=== PATIENT | male | born 1945 | race Caucasian/White ===

== ENCOUNTER 2017-10-18 04:24 | Observation (INO) | payer MEDICARE, MEDICAID ==
[2017-10-18 04:31] VITALS: BMI 29.0
--- NOTE | 2017-10-18 04:40 | ED PDOC ---
Arrival/HPI - General Chief Complaint: Dizziness/Lightheaded Time Seen by Provider: 10/18/17 04:25 Historian: Patient, Family - History of Present Illness Narrative History of Present Illness (Text): 10/18/17 04:39 Roge Yan is a 72 year old male, whose past medical history includes hypertension, who presents to the Emergency department complaining of dizziness. Patient states he did not feel well when he went to bed yesterday evening and woke up this morning with worsening dizziness. Patient states he felt near-syncopal and notes he was unable to get out of bed and walk on his own secondary to dizziness. Patient denies any fever, chills, chest pain, shortness of breath, nausea, vomiting, diarrhea, urinary symptoms, back pain, neck pain, or any other complaints. Symptom Onset: Gradual Symptom Course: Unchanged Activities at Onset: Light Context: Home Past Medical History - Provider Review Nursing Documentation Reviewed: Yes - Infectious Disease Hx of Infectious Diseases: None - Cardiac Hx Cardiac Disorders: Yes Hx Hypertension: Yes - Endocrine/Metabolic Hx Endocrine Disorders: Yes Hx Diabetes Mellitus Type 2: Yes - Psychiatric Hx Depression: No Hx Emotional Abuse: No Hx Physical Abuse: No Hx Substance Use: No - Suicidal Assessment Feels Threatened In Home Enviroment: No Family/Social History - Physician Review Nursing Documentation Reviewed: Yes Family/Social History: Unknown Family HX Smoking Status: Never Smoked Hx Alcohol Use: No Hx Substance Use: No Hx Substance Use Treatment: No Allergies/Home Meds Allergies/Adverse Reactions: Allergies No Known Allergies Allergy (Verified 06/10/15 13:58) Home Medications: Home Meds Medication Instructions Recorded Confirmed Amlodipine Besylate/Benazepr 1 cap PO DAILY 07/31/13 06/10/15 [Lotrel 10 mg-20 mg] Aspirin [Aspirin] 1 tab PO DAILY 07/31/13 06/10/15 Review of Systems - Physician Review All systems were reviewed & negative as marked: Yes - Review of Systems Constitutional: Normal. absent: Fevers Eyes: Normal ENT: Normal Respiratory: Normal. absent: SOB, Cough Cardiovascular: Other (+near-syncopal). absent: Chest Pain Gastrointestinal: Normal. absent: Abdominal Pain, Diarrhea, Nausea, Vomiting Genitourinary Male: Normal. absent: Dysuria, Frequency, Hematuria, Urinary Output Changes Musculoskeletal: Normal. absent: Back Pain, Neck Pain Skin: Normal. absent: Rash Neurological: Dizziness. absent: Headache Endocrine: Normal Hemo/Lymphatic: Normal Psychiatric: Normal Physical Exam Vital Signs Reviewed: Yes Vital Signs Temp Pulse Resp BP Pulse Ox 10/18/17 06:00 64 17 131/68 100 10/18/17 04:25 97.9 F 66 18 152/87 H 100 Temperature: Afebrile Blood Pressure: Hypertensive Pulse: Regular Respiratory Rate: Normal Appearance: Positive for: Well-Appearing, Non-Toxic, Comfortable Pain Distress: None Mental Status: Positive for: Alert and Oriented X 3 - Systems Exam Head: Present: Atraumatic, Normocephalic Pupils: Present: PERRL Extroacular Muscles: Present: EOMI Conjunctiva: Present: Normal Ears: Present: Normal, NORMAL TM, Normal Canal. No: Erythema, TM Bulging, Fluid , TM Perf Mouth: Present: Moist Mucous Membranes Pharnyx: Present: Normal. No: ERYTHEMA, EXUDATE, TONSILS ENLARGED, Peritonsilar Swelling, Uvular Deviation, Muffled/Hoarse Voice, Strider, Soft Palate/Uvular Edema Nose (External): Present: Atraumatic Nose (Internal): Present: Normal Inspection Neck: Present: Normal Range of Motion. No: Meningeal Signs, MIDLINE TENDERNESS , Paraspinal Tenderness Respiratory/Chest: Present: Clear to Auscultation, Good Air Exchange. No: Respiratory Distress, Accessory Muscle Use Cardiovascular: Present: Regular Rate and Rhythm, Normal S1, S2. No: Murmurs Abdomen: No: Tenderness, Distention, Peritoneal Signs Back: Present: Normal Inspection. No: CVA Tenderness, Midline Tenderness, Paraspinal Tenderness Upper Extremity: Present: Normal Inspection. No: Cyanosis, Edema Lower Extremity: Present: Normal Inspection. No: Edema Neurological: Present: GCS=15, CN II-XII Intact, Speech Normal, Motor Func Grossly Intact, Normal Sensory Function, Normal Cerebellar Funct Skin: Present: Warm, Dry, Normal Color. No: Rashes Psychiatric: Present: Alert, Oriented x 3, Normal Insight, Normal Concentration Medical Decision Making ED Course and Treatment: 10/18/17 04:39 Impression: 72 year old male presents for dizziness and near-syncope tonight. Plan: -- CT Head w/o contrast -- EKG -- Chest X-ray -- Labs, cardiac enzymes -- Reassess and disposition Progress Notes: Reviewed EKG, NSR at [address]-segment elevations or depressions, no T-wave inversions, normal intervals. 10/18/17 06:12 Chest X-ray reviewed, shows no acute processes. 10/18/17 06:30 Patient still with transient symptoms.Discussed with .Accepts to his service tele observation.Dr Saenz on consult.Request medical recruiter to see patient. - Lab Interpretations Lab Results: 10/18/17 04:56 10/18/17 04:56 Lab Results 10/18/17 05:21: PT 12.5, INR 1.09, APTT 29.3 10/18/17 04:56: WBC 3.4 L D, RBC 4.12, Hgb 12.9 L, Hct 37.4 L, MCV 90.8, MCH 31.3, MCHC 34.5, RDW 13.6, Plt Count 161, MPV 9.4 10/18/17 04:56: Sodium 140, Potassium 4.3, Chloride 107, Carbon Dioxide 23, Anion Gap 15, BUN 24 H, Creatinine 1.4, Est GFR ( Amer) > 60, Est GFR ( Non-Af Amer) 50, Random Glucose 158 H, Calcium 8.6, Total Bilirubin 0.5, AST 22 , ALT 27, Alkaline Phosphatase 59, Lactate Dehydrogenase 389, Total Creatine Kinase 183, Troponin I < 0.01, Total Protein 6.8, Albumin 3.7, Globulin 3.0, Albumin/Globulin Ratio 1.2 10/18/17 04:42: POC Glucose (mg/dL) 129 H I have reviewed the lab results: Yes - RAD Interpretation Radiology Orders: 10/18/17 04:47 HEAD W/O CONTRAST [CT] Stat 10/18/17 04:48 CHEST PORTABLE [RAD] Stat Rehabilitation Medicine Physician: ED Physician - EKG Interpretation Interpreted by ED Physician: Yes Type: 12 lead EKG - Medication Orders Current Medication Orders: Discontinued Medications Meclizine HCl (Antivert) 25 mg PO STAT STA Stop: 10/18/17 06:26 - Scribe Statement The provider has reviewed the documentation as recorded by the Catherine Martinez Provider Scribe Attestation: All medical record entries made by the Scribe were at my direction and personally dictated by me. I have reviewed the chart and agree that the record accurately reflects my personal performance of the history, physical exam, medical decision making, and the department course for this patient. I have also personally directed, reviewed, and agree with the discharge instructions and disposition. Disposition/Present on Arrival - Present on Arrival Any Indicators Present on Arrival: No History of DVT/PE: No History of Uncontrolled Diabetes: No Urinary Catheter: No History of Decub. Ulcer: No History Surgical Site Infection Following: None - Disposition Have Diagnosis and Disposition been Completed?: Yes Diagnosis: Near syncope, Vertigo Disposition: HOSPITALIZED Disposition Time: 06:30 Condition: STABLE Referrals: Shanti Rodriguez [Primary Care Provider] - Follow up with primary Forms: [employer] (Ukrainian)
[2017-10-18 05:11] LABS: HEMOGLOBIN 12.9 g/dL (14.0-18.0); MEAN CELL VOLUME 90.8 fl (80.0-105.0); MEAN CORPUSCULAR HEMOGLOBIN 31.3 pg (25.0-35.0); MEAN CORPUSCULAR HGB CONC 34.5 g/dl (31.0-37.0); MEAN PLATELET VOLUME 9.4 fl (7.0-11.0); RBC 4.12 10^6/uL (3.5-6.1); RED CELL DISTRIBUTION WIDTH 13.6 % (11.5-14.5)
[2017-10-18 05:18] LABS: WHITE BLOOD COUNT 3.4 10^3/ul (4.5-11.0)
[2017-10-18 05:21] LABS: ALB/GLOB RATIO 1.2 (1.1-1.8); ALBUMIN 3.7 g/dL (3.0-4.8); ALT/SGPT 27 U/L (7-56); AST/SGOT 22 U/L (17-59); BLOOD UREA NITROGEN 24 mg/dL (7-21); CALCIUM 8.6 mg/dL (8.4-10.5); GFR NON-AFRICAN AMERICAN 50
[2017-10-18 05:32] LABS: TROPONIN I < 0.01 ng/mL
[2017-10-18 05:45] LABS: INR 1.09; PARTIAL THROMBOPLASTIN TIME 29.3 Seconds (25.1-36.5); PROTHROMBIN TIME 12.5 SECONDS (9.4-12.5)
--- NOTE | 2017-10-18 07:37 | CT ---
Date of service: 10/18/2017 PROCEDURE: CT HEAD WITHOUT CONTRAST. HISTORY: near syncope COMPARISON: None available. TECHNIQUE: Axial computed tomography images were obtained through the head/brain without intravenous contrast. Radiation dose: Total exam DLP = mGy-cm. This CT exam was performed using one or more of the following dose reduction techniques: Automated exposure control, adjustment of the mA and/or kV according to patient size, and/or use of iterative reconstruction technique. FINDINGS: HEMORRHAGE: No intracranial hemorrhage. BRAIN: No mass effect or edema. No atrophy or chronic microvascular ischemic changes. VENTRICLES: Unremarkable. No hydrocephalus. CALVARIUM: Unremarkable. PARANASAL SINUSES: Unremarkable as visualized. No significant inflammatory changes. MASTOID AIR CELLS: Unremarkable as visualized. No inflammatory changes. OTHER FINDINGS: None. IMPRESSION: Normal CT of the Head.
[2017-10-18 08:50] LABS: ALB/GLOB RATIO 1.3 (1.1-1.8); ALBUMIN 4.2 g/dL (3.0-4.8); BILIRUBIN,DIRECT 0.2 mg/dL (0.0-0.4)
[2017-10-18 10:07] LABS: FREE T4 0.89 ng/dL (0.78-2.19); T4 6.5 ug/dL (5.5-11.0)
--- NOTE | 2017-10-18 10:07 | RAD ---
Date of service: 10/18/2017 HISTORY: near syncope COMPARISON: No prior. FINDINGS: LUNGS: No active pulmonary disease. PLEURA: No significant pleural effusion identified, no pneumothorax apparent. CARDIOVASCULAR: Normal. OSSEOUS STRUCTURES: No significant abnormalities. VISUALIZED UPPER ABDOMEN: Normal. OTHER FINDINGS: None. IMPRESSION: No active disease.
[2017-10-18 10:17] LABS: BARBITURATES, UR NEGATIVE (NEGATIVE); BENZODIAZEPINES, UR NEGATIVE (NEGATIVE); OPIATES, UR NEGATIVE (NEGATIVE); PHENCYCLIDINE, UR NEGATIVE (NEGATIVE)
[2017-10-18] MEDS: Enoxaparin 40 mg Syringe SC SCH (10:29)
[2017-10-18 10:35] LABS: URINE APPEARANCE CLEAR (CLEAR); URINE BILIRUBIN NEGATIVE (NEGATIVE); URINE BLOOD NEGATIVE (NEGATIVE); URINE COLOR YELLOW (YELLOW); URINE GLUCOSE (UA) NEGATIVE (NEGATIVE); URINE LEUKOCYTE ESTERASE NEGATIVE Leu/uL (NEGATIVE); URINE PROTEIN NEGATIVE mg/dL (<30 mg/dL); URINE UROBILINOGEN 0.2 E.U./dL (<1 E.U./dL)
[2017-10-18 11:12] LABS: TROPONIN I < 0.01 ng/mL
[2017-10-18] MEDS: Aspirin 325 mg EC Tablets PO SCH (11:43)
--- NOTE | 2017-10-18 12:41 | HP ---
Copied To: Krishna Tomas MD Attending MD: Krishna Tomas MD HISTORY OF PRESENT ILLNESS: The patient is a 72-year-old male who presented to the [facility] Emergency Room as a walk-in. The patient came to the Emergency Room according to the patient's daughter who provided all the history complaining of dizziness and almost passing out, which started in around 1 o'clock this morning. The patient's daughter stated that he went to bed fine and then we woke up to go to the bathroom, the patient was extremely dizzy and was unable to walk and almost felt like passing out. The patient's daughter stated that yesterday the patient was working in the yard and he was in normal state of health until yesterday. According to the ER physician evaluation, the patient felt very dizzy early this morning and had a near-syncopal episode while going to the bathroom. CODE STATUS: Full code. LIVING WILL ADVANCE DIRECTIVE: None. ALLERGIES: NONE. HEIGHT: 5 feet 6 inches. WEIGHT: 180. BMI: 29. HOME MEDICATIONS: Aspirin 81 mg and Norvasc 10 mg. OCCUPATIONAL HISTORY: Not employed. FAMILY HISTORY: Not available. SOCIAL HISTORY: Former smoker. Denies alcohol. Denies drug use. Denies communicable transmissible disease. Denies hypersexual behavior. PAST MEDICAL AND SURGICAL HISTORY: History of hypertension, history of leukopenia, history of obesity, history of elevated body mass index, history of vertigo, history of involutional changes of the brain, history of bradycardia. The patient's past medical history is also significant for history of dizziness. The patient is seen in room 271 bed 1. The patient is lying in the bed. PHYSICAL EXAMINATION: VITAL SIGNS: T-max is 98, heart rate 63 and 66. Telemetry shows sinus rhythm, sinus bradycardia. Blood pressure 152/87, 131/68, 138/65,144/83; respirations 18;, O2 sat 98-99%. HEENT: The patient's head examination is normocephalic, atraumatic. HEENT examination shows pink conjunctivae. Anicteric sclerae. No oropharyngeal lesion. NECK: No neck rigidity. Questionable soft carotid bruit. CHEST: Kyphosis. LUNGS: Examination shows no rales, crackles or wheezing. CARDIOVASCULAR: S1, S2, regular rhythm. Questionable soft systolic murmur, left sternal border, right second intercostal space, left second intercostal space. ABDOMEN: Soft, protuberant. No hepatosplenomegaly noted. No guarding. No rigidity. No rebound tenderness. GENITALIA: Male. RECTAL: Deferred. EXTREMITIES: Shows no pitting edema, no calf tenderness, no Homans' signs. Romberg sign is questionable, equivocal. Motor strength is 5/5. Gait examination is not tested. VASCULAR: Palpable pulses. Cranial nerves II-XII limited. DIAGNOSTICS: CBC: WBC 3.4, hemoglobin and hematocrit 12.9 and 37.4. ESR is elevated at 20. PT/PTT is normal. Chemistry shows BUN of 24, creatinine 1.4, glucose 129 and 158. LFTs: Magnesium and troponin first set negative. Cholesterol 171, LDL 57, HDL 64. TSH 1.94, T4 6.5. Urine pH 6, specific gravity less than 1.005. Urine drug screen was negative for all tested drugs. The patient had CT of the head and a chest x-ray done, the results of which were reviewed. EKG was done and reviewed. The patient was seen and evaluated in the Emergency Room by the ER physician, Dr. Phillips. The patient was evaluated in the Emergency Room. The patient was advised to be admitted to Telemetry due to the patient's symptoms. The patient was treated in the Emergency room with a dose of Antivert and meclizine 25. IMPRESSION AND PLAN: 1. Near syncope, etiology undetermined. 2. Severe symptomatic dizziness and near syncope. 3. Questionable vertigo. 4. Hypertension. 5. Bradycardia. 6. Leukopenia and anemia. 7. Mildly elevated erythrocyte sedimentation rate. 8. Hyperglycemia. 9. Prerenal kidney injury. 10. Obesity with elevated body mass index. 11. History of sinus bradycardia. 12. Questionable history of diabetes mellitus. PLAN: At this time, the patient has been placed on Telemetry Observation. The patient has been ordered serial labs. Repeat troponin, repeat CPK, repeat LFT, magnesium and phosphorus has been ordered. HIV, Lyme disease ordered. Consultation with Neurology, Cardiology requested. RPR ordered. CURRENT MEDICATIONS: The patient is started on Antivert 25 mg. The patient is started on aspirin. Ecotrin 325 mg daily has been ordered. The patient has been ordered Lipitor 40 mg daily, Lovenox 40 mg subcu daily for DVT prophylaxis, Protonix 40 daily for GI prophylaxis, Zofran 4 IV every 4 hours has been ordered p.r.n. Carotid Doppler, MRI and MRA of the brain; repeat EKG EEG, echo with Doppler all ordered. The patient is on heart-healthy diet. The patient has been ordered out of bed, ROBERTA stockings, SCDs, occupational and physical therapy ordered. At present, the patient's present management and treatment plan, need for further diagnostic therapeutic intervention, need for further evaluation by Cardiology, Neurology and other subspecialty was discussed and explained to the patient's daughter. The eldest daughter was present at the bedside. All details discussed at length with the patient and the patient's daughter at length and all questions concerned answered to their satisfaction. At present, the patient's further management will be dependent upon the patient's clinical condition, hemodynamic status and as per the patient response to therapeutic intervention, as per the patient's diagnostic test results and as per recommendation by all the physicians involved in the care of the patient. Dictated and electronically signed, not read. Krishna Tomas MD
[2017-10-18] MEDS ORDERED: Pneumococcal 23-Valent Vaccine IM ONE (13:17)
[2017-10-18 17:21] LABS: TROPONIN I < 0.01 ng/mL
[2017-10-18] MEDS ORDERED: Gadodiamide 287 MG/ML VIAL (15ML) IV ONE (17:33)
--- NOTE | 2017-10-18 17:36 | US ---
PROCEDURE: Bilateral carotid artery duplex ultrasound HISTORY: Carotid stenosis syncope PHYSICIAN(S): Neftali Welch MD. TECHNIQUE: Duplex sonography and color-flow Doppler were used to evaluate the carotid bifurcations and limited segments of the vertebral arteries bilaterally. FINDINGS: There is mild smooth heterogeneous plaque noted at the carotid bifurcations bilaterally. The peak systolic velocity in the proximal right internal carotid artery is 92 cm/sec. This corresponds to a 20 to 39% proximal right ICA stenosis. Normal systolic velocities are noted in the proximal right external carotid artery. There is antegrade flow in the right vertebral artery. The peak systolic velocity in the proximal left internal carotid artery is 99 cm/sec. This corresponds to a 20 to 39% proximal left ICA stenosis. Normal systolic velocities are noted in the proximal left external carotid artery. There is antegrade flow in the dominant left vertebral artery. IMPRESSION: 1. Bilateral 20-39% proximal ICA stenoses. 2. Antegrade flow in both vertebral arteries.
--- NOTE | 2017-10-18 19:09 | MRI ---
Date of service: 10/18/2017 PROCEDURE: MRI BRAIN WITH AND WITHOUT CONTRAST HISTORY: Near syncope COMPARISON: Comparison made with prior CT scan brain 10/18/2017 TECHNIQUE: Multiplanar, multisequence MR images of the brain were obtained with and without intravenous contrast enhancement. 15 cc of gadolinium contrast material injected for this procedure FINDINGS: HEMORRHAGE: No acute parenchymal, subarachnoid or extra-axial hemorrhage. No evidence of hemosiderin deposition identified on gradient echo weighted sequence DWI: No evidence of an acute or early subacute infarction seen on diffusion imaging. . BRAIN PARENCHYMA: There appears to be some minimal chronic appearing perifrontal horn white matter ischemic changes. Moderate generalized volume loss. ENHANCEMENT: No enhancing parenchymal nor extra-axial masses or collections. . . No evidence of abnormal meningeal enhancement VENTRICLES: No obstructive hydrocephalus. CRANIUM: Unremarkable. ORBITS: Orbits and contents grossly unremarkable. PARANASAL SINUSES/MASTOIDS: Clear VASCULAR SYSTEM: Visualized major vascular flow voids at skull base. OTHER FINDINGS: None . IMPRESSION: No acute intracranial hemorrhage or infarct. No enhancing masses collections. Minimal perifrontal horn white matter ischemic changes. . Moderate generalized volume loss. No enhancing lesions.
--- NOTE | 2017-10-18 21:07 | CON ---
Copied To: Nehemiah Saenz MD Attending MD: Nehemiah Saenz MD DATE: 10/18/2017 HISTORY OF PRESENT ILLNESS: This is a 72-year-old male with a past medical history of hypertension, bradycardia, dizziness. He is my office patient and came to see because he was feeling dizzy after having meal at home, spoke to the daughter that he is feeling dizzy and she brought him to the hospital. PAST MEDICAL HISTORY: As above. SOCIAL HISTORY: Ex-smoker. Does not drink. ALLERGIES: NO KNOWN DRUG ALLERGY. HOME MEDICATIONS: Norvasc and aspirin. PHYSICAL EXAMINATION: HEENT: Normocephalic, atraumatic. NECK: Supple. NEUROLOGIC: Alert, awake, oriented x3. No aphasia. Cranial nerves II through XII were tested. Pupils reactive. EOM intact. Visual brown full. No facial asymmetry. Tongue midline. Motor examination: Moves all the extremities equally. Tone normal. Deep tendon reflexes are 1+. Both plantars are downgoing. Sensory appears intact. Cerebellar, gait, normal. IMPRESSION: Dizziness, could be benign positional and no intracranial pathology. MRI, CAT scan of head was negative and continue present management and we will follow up. Nehemiah Saenz MD
[2017-10-19 05:03] VITALS: RESP 20; O2SAT 98
[2017-10-19] MEDS ORDERED: Pantoprazole 40 mg EC Tab PO SCH (06:00)
[2017-10-19 06:58] LABS: BASO # 0.01 K/mm3 (0.0-2.0); BASO % 0.3 % (0.0-3.0); EOS # 0.2 (0.0-0.7); EOS % 4.2 % (1.5-5.0); GRAN # 1.7 (1.4-6.5); GRAN % 44.2 % (50.0-68.0); HEMOGLOBIN 12.9 g/dL (14.0-18.0); LYMPH # 1.6 (1.2-3.4); LYMPH % 41.7 % (22.0-35.0); MEAN CELL VOLUME 91.4 fl (80.0-105.0); MEAN CORPUSCULAR HEMOGLOBIN 30.8 pg (25.0-35.0); MEAN CORPUSCULAR HGB CONC 33.7 g/dl (31.0-37.0); MEAN PLATELET VOLUME 9.6 fl (7.0-11.0); MONO # 0.4 (0.1-0.6); MONO % 9.6 % (1.0-6.0); RBC 4.19 10^6/uL (3.5-6.1); RED CELL DISTRIBUTION WIDTH 13.7 % (11.5-14.5); WHITE BLOOD COUNT 3.8 10^3/ul (4.5-11.0)
[2017-10-19 07:03] LABS: ALB/GLOB RATIO 1.2 (1.1-1.8); ALBUMIN 3.4 g/dL (3.0-4.8); ALT/SGPT 25 U/L (7-56); AST/SGOT 22 U/L (17-59); BILIRUBIN,DIRECT 0.1 mg/dL (0.0-0.4); BLOOD UREA NITROGEN 17 mg/dL (7-21); CALCIUM 8.9 mg/dL (8.4-10.5); GFR NON-AFRICAN AMERICAN 60
[2017-10-19 07:09] VITALS: BP 126/68; PULSE 52; TEMP 98.3
--- NOTE | 2017-10-19 07:35 | CARD ---
APPROVED REPORT Date of service: 10/18/2017 EKG Measurement Heart [id number] <Conclusion> Normal sinus rhythm Normal ECG
--- NOTE | 2017-10-19 07:55 | CARD ---
APPROVED REPORT Date of service: 10/18/2017 EXAM: Two-dimensional and M-mode echocardiogram with Doppler and color Doppler. Other Information Quality : GoodRhythm : INDICATION NEAR SYNCOPE 2D DIMENSIONS RVDd3.0 (2.9-3.5cm)Left Atrium (2D)3.7 (1.6-4.0cm) IVSd1.1 (0.7-1.1cm)LVDd4.6 (3.9-5.9cm) PWd1.0 (0.7-1.1cm)LVDs2.7 (2.5-4.0cm) FS (%) 40.6 %LVEF (%)71.0 (>50%) M-Mode DIMENSIONS Aortic Root4.30 (2.2-3.7cm)Aortic Cusp Exc.1.80 (1.5-2.0cm) Aortic Valve AoV Peak Qlmcadvs325.0cm/s Mitral Valve MV E Kdgzxoan96.6cm/sMV A Bllfcxzz67.3cm/sE/A ratio0.7 TDI Lateral E' Peak V9.91cm/sMedial E' Peak V8.19cm/sE/Lateral E'6.8 E/Medial E'8.3 Pulmonary Valve PV Peak Rfvgrges37.3cm/sPV Peak Grad.4mmHg Tricuspid Valve TR Peak Wmmpmwum215zc/sRAP [id number] Peak Gr.25mmHg [id number] LEFT VENTRICLE The left ventricle is normal size. There is normal left ventricular wall thickness. The left ventricular function is normal. The left ventricular ejection fraction is within the normal range. There is normal LV segmental wall motion. RIGHT VENTRICLE The right ventricle is normal size. ATRIA The left atrium size is normal. The right atrium size is normal. The atrial septum is aneurysmal. AORTIC VALVE The aortic valve is normal in structure. There is trace aortic regurgitation. MITRAL VALVE The mitral valve is normal in structure. Mitral regurgitation is mild. TRICUSPID VALVE The tricuspid valve is normal in structure. There is trace tricuspid regurgitation. PULMONIC VALVE The pulmonary valve is normal in structure. There is trace pulmonic valvular regurgitation. GREAT VESSELS The aortic root is normal in size. PERICARDIAL EFFUSION There is no pericardial effusion. <Conclusion> The left ventricle is normal size. There is normal left ventricular wall thickness. The left ventricular function is normal.
--- NOTE | 2017-10-19 08:54 | MRI ---
Date of service: 10/18/2017 PROCEDURE: Magnetic Resonance Angiography Brain HISTORY: NEAR SYNCOPE COMPARISON: None available. TECHNIQUE: 3D time of flight MR angiography of the intracranial arteries was performed. Rotating maximum intensity projection images were generated. FINDINGS: INTERNAL CAROTID ARTERIES: Unremarkable. The skull base, petrous, cavernous and supraclinoid segments are bilaterally widely patient. ANTERIOR CEREBRAL ARTERIES: Unremarkable. A1 and A2 segments are widely patent. Smaller distal branches unremarkable, as visualized. MIDDLE CEREBRAL ARTERIES: Unremarkable. M1 and M2 segments are widely patent. Perisylvian branches grossly symmetric. POSTERIOR CIRCULATION: Basilar Artery: Unremarkable. Distal Vertebral Arteries: Unremarkable. Posterior Cerebral Arteries: Unremarkable. Posterior Inferior Cerebellar Arteries: Unremarkable. ANEURYSM/ VASCULAR MALFORMATIONS: None. OTHER FINDINGS: None. IMPRESSION: Unremarkable MR angiography of the brain. No evidence of significant stenosis or definite occlusion. No aneurysm formation or arteriovascular malformation. Concordant preliminary report from [facility], 10/18/2017.
--- NOTE | 2017-10-19 09:01 | CARD ---
APPROVED REPORT Date of service: 10/19/2017 EKG Measurement Heart [id number] <Conclusion> Marked sinus bradycardia, new PRWP
[2017-10-19] MEDS: Enoxaparin 40 mg Syringe SC SCH (09:36)
[2017-10-19] MEDS: Aspirin 325 mg EC Tablets PO SCH (09:37)
--- NOTE | 2017-10-19 09:42 | CP.PCM.PN ---
Subjective - Date & Time of Evaluation Date of Evaluation: 10/19/17 Time of Evaluation: 09:41 - Subjective Subjective: Gilbert Le PGY2 IM Progress Note for Dr. Tomas Patient was seen and examined at bedside. Overnight, patient did have an episode of bradycardia. He denies current dizziness or gait instability. He states that he was able to ambulate last night without any problems, and has not had any problems with changes in vision, hearing, ringing in the ears, chest pain, shortness of breath or any numbness/tingling or focal weakness. Patient was seen by neurology, Dr. Saenz, who knows the patient on an outpatient basis, and he recommended to continue management and will be following up. Objective - Vital Signs/Intake and Output Vital Signs (last 24 hours): Temp Pulse Resp BP Pulse Ox 98.3 F 52 L 20 126/68 98 10/19/17 06:00 10/19/17 06:00 10/19/17 06:00 10/19/17 06:00 10/19/17 06:00 Intake and Output: 10/19/17 10/19/17 06:59 18:59 Intake Total 240 Balance 240 - Medications Medications: Current Medications Acetaminophen (Tylenol 325mg Tab) 650 mg PO Q6 PRN PRN Reason: TEMP>=99.5F Acetaminophen (Tylenol 650 Mg Supp) 650 mg RC Q6H PRN PRN Reason: TEMP>=99.5F Aspirin (Ecotrin) 325 mg PO DAILY [facility] Last Admin: 10/19/17 09:37 Dose: 325 mg Atorvastatin Calcium (Lipitor) 40 mg PO DIN [facility] Last Admin: 10/18/17 17:07 Dose: 40 mg Enoxaparin Sodium (Lovenox) 40 mg SC DAILY [facility] PRN Reason: Protocol Last Admin: 10/19/17 09:36 Dose: 40 mg Meclizine HCl (Antivert) 25 mg PO Q8H [facility] Last Admin: 10/19/17 09:37 Dose: 25 mg Ondansetron HCl (Zofran Inj) 4 mg IVP Q4H PRN PRN Reason: Nausea/Vomiting Pantoprazole Sodium (Protonix Ec Tab) 40 mg PO 0600 [facility] Last Admin: 10/19/17 06:38 Dose: 40 mg - Labs Labs: 10/19/17 06:30 10/19/17 06:30 PT 12.5 SECONDS (9.4-12.5) 10/18/17 05:21 INR 1.09 10/18/17 05:21 APTT 29.3 Seconds (25.1-36.5) 10/18/17 05:21 - Constitutional Appears: Well, Non-toxic, No Acute Distress - Head Exam Head Exam: NORMAL INSPECTION - Eye Exam Eye Exam: EOMI, Normal appearance, PERRL - ENT Exam ENT Exam: Mucous Membranes Moist - Neck Exam Neck Exam: Normal Inspection - Respiratory Exam Respiratory Exam: Clear to Ausculation Bilateral, NORMAL BREATHING PATTERN. absent: Rales, Rhonchi, Wheezes, Respiratory Distress - Cardiovascular Exam Cardiovascular Exam: RRR, +S1, +S2 - GI/Abdominal Exam GI & Abdominal Exam: Soft, Normal Bowel Sounds. absent: Distended, Tenderness - Extremities Exam Extremities Exam: Full ROM - Back Exam Back Exam: NORMAL INSPECTION - Neurological Exam Neurological Exam: Alert, Awake, Oriented x3 Neuro motor strength exam: Left Upper Extremity: 5, Right Upper Extremity: 5, Left Lower Extremity: 5, Right Lower Extremity: 5 Additional comments: no dysmetria normal [id number] b/l and [id number] b/l - Psychiatric Exam Psychiatric exam: Normal Mood - Skin Skin Exam: Warm Assessment and Plan - Assessment and Plan (Free Text) Assessment: 72-year-old male with a PMH of HTN, bradycardia and dizziness who presented to the ED for episode of dizziness and gait instability. Cardiology and neurology were consulted. Neurology recommends follow-up with patient as dizziness could be benign positional with no intracranial pathology. MRI brain , MRA head, echocardiogram and carotid venous duplex were all unremarkable. Cardiology cleared patient for discharge. This morning, patient's symptoms have resolved and he is neurologically stable. Plan: 1. Dizziness, likely BPPV - improved with Meclizine - continue Meclizine 25 q8 - zofran prn - cont ASA/Lipitor - PT recommending home 2. Bradycardia - stopped Norvasc 3. PPX - PTX for GI ppx - Lovenox for DVT ppx Case was reviewed and discussed with attending, Dr. Thom Le PGY2
--- NOTE | 2017-10-19 11:48 | CON ---
Copied To: Neftali Angeles MD Attending MD: Neftali Angeles MD DATE: 10/19/2017 CARDIOLOGY CONSULTATION HISTORY: The patient is a 72-year-old male, who presents with transient dizziness. His symptoms as described is consistent with vertigo. The patient's past medical history includes hypertension, in which he is on multiple medications. There is no previous cardiac history. He does suffer from hypercholesterolemia as well. SOCIAL HISTORY: The patient is a former smoker, stopped many years ago. No previous cardiac history is noted. REVIEW OF SYSTEMS: Fourteen-point review of systems is reviewed in detail. His dizziness is now resolved. There is no cardiac symptomatology noted. PHYSICAL EXAMINATION: VITAL SIGNS: Blood pressure is 126/68. There are no orthostatic changes. Heart rate is in the 50s. Normal sinus rhythm. NECK: Negative JVD. LUNGS: Without rales. HEART: Reveals S1, S2. EXTREMITIES: Without edema. EKG shows sinus bradycardia with no acute changes. LABORATORY DATA: Troponins are negative x2. Hemoglobin is 12.9. IMPRESSION: 1. Dizziness, which is likely due to vertigo. 2. No evidence for cardiac pathology. 3. History of hypertension. 4. History of hypercholesterolemia. 5. No acute coronary syndrome noted. PLAN: Given these findings, the patient's cardiac status is stable. His dizziness is resolved. We will discontinue telemetry today. Neftali Angeles MD
--- NOTE | 2017-10-19 20:51 | CP.PCM.DIS ---
Provider - Provider Date of Admission: 10/18/17 06:32 Attending physician: Krishna Tomas MD Primary care physician: Shanti Rodriguez Time Spent in preparation of Discharge (in minutes): 35 Diagnosis - Discharge Diagnosis (1) Vertigo Status: Chronic Hospital Course - Lab Results Lab Results: Most Recent Lab Values WBC 3.8 10^3/ul (4.5-11.0) L 10/19/17 06:30 RBC 4.19 10^6/uL (3.5-6.1) 10/19/17 06:30 Hgb 12.9 g/dL (14.0-18.0) L 10/19/17 06:30 Hct 38.3 % (42.0-52.0) L 10/19/17 06:30 MCV 91.4 fl (80.0-105.0) 10/19/17 06:30 MCH 30.8 pg (25.0-35.0) 10/19/17 06:30 MCHC 33.7 g/dl (31.0-37.0) 10/19/17 06:30 RDW 13.7 % (11.5-14.5) 10/19/17 06:30 Plt Count 177 10^3/uL (120.0-450.0) 10/19/17 06:30 MPV 9.6 fl (7.0-11.0) 10/19/17 06:30 Gran % 44.2 % (50.0-68.0) L 10/19/17 06:30 Lymph % (Auto) 41.7 % (22.0-35.0) H 10/19/17 06:30 [place] % (Auto) 9.6 % (1.0-6.0) H 10/19/17 06:30 Eos % (Auto) 4.2 % (1.5-5.0) 10/19/17 06:30 Baso % (Auto) 0.3 % (0.0-3.0) 10/19/17 06:30 Gran # 1.70 (1.4-6.5) 10/19/17 06:30 Lymph # (Auto) 1.6 (1.2-3.4) 10/19/17 06:30 [place] # (Auto) 0.4 (0.1-0.6) 10/19/17 06:30 Eos # (Auto) 0.2 (0.0-0.7) 10/19/17 06:30 Baso # (Auto) 0.01 K/mm3 (0.0-2.0) 10/19/17 06:30 ESR 20 mm/hr (0.00-15.0) H 10/18/17 05:00 PT 12.5 SECONDS (9.4-12.5) 10/18/17 05:21 INR 1.09 10/18/17 05:21 APTT 29.3 Seconds (25.1-36.5) 10/18/17 05:21 Sodium 141 mmol/L (132-148) 10/19/17 06:30 Potassium 4.6 mmol/L (3.6-5.0) 10/19/17 06:30 Chloride 108 mmol/L (98-107) H 10/19/17 06:30 Carbon Dioxide 25 mmol/L (21-33) 10/19/17 06:30 Anion Gap 12 (10-20) 10/19/17 06:30 BUN 17 mg/dL (7-21) 10/19/17 06:30 Creatinine 1.2 mg/dl (0.8-1.5) 10/19/17 06:30 Est GFR ( Amer) > 60 10/19/17 06:30 Est GFR (Non-Af Amer) 60 10/19/17 06:30 POC Glucose (mg/dL) 94 mg/dL (65-110) 10/19/17 07:18 Random Glucose 100 mg/dL (70-110) 10/19/17 06:30 Hemoglobin A1c 6.4 % (4.2-6.5) 10/18/17 08:15 Calcium 8.9 mg/dL (8.4-10.5) 10/19/17 06:30 Phosphorus 3.0 mg/dL (2.5-4.5) 10/19/17 06:30 Magnesium 2.2 mg/dL (1.7-2.2) 10/19/17 06:30 Total Bilirubin 0.8 mg/dL (0.2-1.3) 10/19/17 06:30 Direct Bilirubin 0.1 mg/dL (0.0-0.4) 10/19/17 06:30 AST 22 U/L (17-59) 10/19/17 06:30 ALT 25 U/L (7-56) 10/19/17 06:30 Alkaline Phosphatase 50 U/L (38-126) 10/19/17 06:30 Lactate Dehydrogenase 389 U/L (333-699) 10/18/17 04:56 Total Creatine Kinase 161 U/L (35-230) 10/18/17 16:50 Troponin I < 0.01 ng/mL 10/18/17 16:50 C-React Prot High Sens 4.27 mg/L (1.00-3.00) H 10/18/17 08:30 Total Protein 6.2 g/dL (5.8-8.3) 10/19/17 06:30 Albumin 3.4 g/dL (3.0-4.8) 10/19/17 06:30 Globulin 2.8 gm/dL 10/19/17 06:30 Albumin/Globulin Ratio 1.2 (1.1-1.8) 10/19/17 06:30 Triglycerides 132 mg/dL (35-160) 10/18/17 08:15 Cholesterol 171 mg/dL (130-200) 10/18/17 08:15 LDL Cholesterol Direct 57 mg/dL (0-129) 10/18/17 08:15 HDL Cholesterol 64 mg/dL (29-60) H 10/18/17 08:15 Vitamin B12 465 pg/mL (239-931) 10/18/17 08:15 Folate 17.0 ng/mL 10/18/17 08:15 Free T4 0.89 ng/dL (0.78-2.19) 10/18/17 08:30 Thyroxine (T4) 6.5 ug/dL (5.5-11.0) 10/18/17 08:30 TSH 3rd Generation 1.94 mIU/mL (0.46-4.68) 10/18/17 08:30 Urine Color Yellow (YELLOW) 10/18/17 09:45 Urine Appearance Clear (CLEAR) 10/18/17 09:45 Urine pH 6.0 (4.7-8.0) 10/18/17 09:45 Ur Specific [place] <= 1.005 (1.005-1.035) 10/18/17 09:45 Urine Protein Negative mg/dL (<30 mg/dL) 10/18/17 09:45 Urine Glucose (UA) Negative mg/dL (NEGATIVE) 10/18/17 09:45 Urine Ketones Negative mg/dL (NEGATIVE) 10/18/17 09:45 Urine Blood Negative (NEGATIVE) 10/18/17 09:45 Urine Nitrate Negative (NEGATIVE) 10/18/17 09:45 Urine Bilirubin Negative (NEGATIVE) 10/18/17 09:45 Urine Urobilinogen 0.2 E.U./dL (<1 E.U./dL) 10/18/17 09:45 Ur Leukocyte Esterase Negative Rosanna/uL (NEGATIVE) 10/18/17 09:45 Urine Opiates Screen Negative (NEGATIVE) 10/18/17 09:45 Urine Methadone Screen Negative (NEGATIVE) 10/18/17 09:45 Ur Barbiturates Screen Negative (NEGATIVE) 10/18/17 09:45 Ur Phencyclidine Scrn Negative (NEGATIVE) 10/18/17 09:45 Ur Amphetamines Screen Negative (NEGATIVE) 10/18/17 09:45 U Benzodiazepines Scrn Negative (NEGATIVE) 10/18/17 09:45 U Oth Cocaine Metabols Negative (NEGATIVE) 10/18/17 09:45 U Cannabinoids Screen Negative (NEGATIVE) 10/18/17 09:45 RPR Nonreactive (NONREACTIVE) 10/18/17 08:30 Lyme Disease Screen <0.90 index 10/18/17 08:15 HIV 1&2 Ag/Ab, 4th Gen Nonreactive (Nonreactive) 10/18/17 08:15 - Hospital Course Hospital Course: Mr. Yan is a 72-year-old male with a PMH of vertigo, hypertension, hyperlipidemia and bradycardia who presented to the ED and was admitted for workup of an episode of dizziness that he had. The patient had denied any related focal deficits or sensory changes, or any changes in vision or hearing. Imaging including head CT, brain MRI, head MRA, carotid ultrasound and echocardiogram were all unremarkable. Neurology and cardiology were consulted. Patient's symptoms improved on meclizine while in the hospital. His vital signs and labs were unremarkable. PT evaluated the patient and recommended that the patient can be safely discharged On morning of discharged, his symptoms had resolved and the patient denied any dizziness, changes in vision/hearing, fever/chills, nausea/vomiting/diarrhea, chest pain, shortness of breath, abdominal pain or any motor/sensory deficits. He was educated regarding his condition. The patient experienced an episode of marked bradycardia, and his Norvasc was stopped. The patient is to continue aspirin, meclizine, Lipitor and losartan. He is to follow-up with Dr. Tomas in clinic within 2 weeks, Dr. Saenz (neurology) within 2 weeks. He states that he also has an appointment with his quartz mounter in 3 months. The patient is medically optimized for discharge. Discharge Exam - Head Exam Head Exam: NORMAL INSPECTION - Eye Exam Eye Exam: EOMI, Normal appearance, PERRL. absent: Nystagmus - Neck Exam Neck exam: Full Rom, Normal Inspection - Respiratory Exam Respiratory Exam: Clear to PA & Lateral, NORMAL BREATHING PATTERN. absent: Rales, Rhonchi, Wheezes, Respiratory Distress - Cardiovascular Exam Cardiovascular Exam: RRR, +S1, +S2 - GI/Abdominal Exam GI & Abdominal Exam: Normal Bowel Sounds, Soft. absent: Distended, Tenderness - Extremities Exam Extremities exam: full ROM - Back Exam Back exam: NORMAL INSPECTION - Neurological Exam Neurological exam: Alert, CN II-XII Intact, Normal Gait, Oriented x3 - Psychiatric Exam Psychiatric exam: Normal Mood - Skin Skin Exam: Warm Discharge Plan - Discharge Medications Prescriptions: Atorvastatin [Lipitor] 40 mg PO DIN #30 tab Meclizine [Meclizine*] 25 mg PO Q8H #30 tab - Follow Up Plan Condition: STABLE Disposition: HOME/ ROUTINE Instructions: Vertigo (a Type of Dizziness), Vertigo (a Type of Dizziness) (DC) , Vestibular Exercises Additional Instructions: - please follow up with Dr. Tomas in clinic within 1 week - please take the meclizine as prescribed 3 times daily - if you continue to experience dizziness, worsening of gait or any other neurological symptoms, please return to closest ER for evaluation STOP NORVASC/AMLODOPINE DISCHARGE MEDS PER UPDATED AMBULATORY ORDERS PLUS NEW SCRIPTS Referrals: Krishna Tomas MD [Staff Provider] - 1 Week (- please follow up with Dr. Tomas in clinic within 1 week - please take the meclizine as prescribed 3 times daily - if you continue to experience dizziness, worsening of gait or any other neurological symptoms, please return to closest ER for evaluation STOP NORVASC/AMLODOPINE DISCHARGE MEDS PER UPDATED AMBULATORY ORDERS PLUS NEW SCRIPTS)
--- NOTE | 2017-10-20 06:30 | DS ---
Copied To: Krishna Tomas MD Attending MD: Krishna Tomas MD FINAL PROGRESS NOTE AND DISCHARGE SUMMARY HISTORY OF PRESENT ILLNESS: The patient is seen in room 271, bed 2. Overnight nurse's notes were reviewed. Telemetry monitoring was reviewed. Vital signs, diagnostic data was reviewed. The patient was examined in room 271, bed 2. The patient denies any dizziness. Denies any syncope. Denies any near syncope. PHYSICAL EXAMINATION: VITAL SIGNS: Telemetry shows sinus bradycardia. Overnight telemetry strips were reviewed. The patient's heart rate decreased to high 40s and low 50s. Blood pressure 126/68, 125/70; respiration 20; O2 sat 98%. HEENT: Head: Normocephalic, atraumatic. Mitchell conjunctivae. Anicteric sclerae. No oropharyngeal lesion. No neck rigidity. CHEST: Symmetrical. LUNGS: Shows no rales, crackles or wheezing. CARDIOVASCULAR: S1, S2, regular rhythm. No audible murmur, gallop or rub. ABDOMEN: Soft. Positive bowel sound. GENITALIA: Male. RECTAL: Examination is deferred. EXTREMITIES: Shows no pitting edema, no calf tenderness, no Homans' sign. NEUROLOGIC: The patient is alert, awake, oriented x3. The patient is able to move upper and lower extremities without assistance. Motor strength is 5/5 in upper and lower extremities. The patient's Romberg sign is negative. DIAGNOSTICS: WBC 3.8, hemoglobin/hematocrit 12.9/38.3, platelets 177, granulocytes 44, lymphocytes 42. Sodium 141, potassium 4.6, chloride 108, CO2 of 25, anion gap 12, BUN 17, creatinine 1.2, GFR greater than 60, glucose 60, 100, hemoglobin A1c 6.4. LFTs are normal. Troponin all three sets are negative. Thyroid panel is negative. B12, folate is within normal limits. Urine drug screen, RPR, Lyme titers all negative. The patient's HIV is pending. The patient's MRA of the brain, carotid ultrasound, MRI of the brain all reviewed. Echocardiogram results, EKG reviewed. Evaluation by Neurology reviewed. FINAL IMPRESSION, PLAN AND DISCHARGE DIAGNOSES: 1. Near syncope. 2. Severe symptomatic vertigo with symptoms of dizziness and near syncope. 3. Hypertension. 4. Severe sinus bradycardia. 5. Leukopenia. 6. Normocytic anemia. 7. Granulocytopenia with lymphocytosis. 8. Mildly elevated erythrocyte sedimentation rate. 9. Mildly elevated C-reactive protein. 10. Prediabetes with hemoglobin A1c of 6.4. 11. Prerenal kidney injury. 12. Bilateral 20% to 39% proximal internal carotid artery stenosis. 13. Minimal chronic prefrontal horn white matter ischemic changes. 14. Moderate generalized volume loss. 15. Left ventricle ejection fraction of 71%. 16. Trace aortic regurgitation, mild mitral regurgitation, trace tricuspid regurgitation, trace pulmonic regurgitation. 17. Marked sinus bradycardia. 18. Left axis deviation. At present, the patient has been cleared by Neurology and Cardiology. Case discussed with Neuro and Cardiology at length. All questions concerned answered. The patient was updated about his condition. The patient is to be discharged home. DISCHARGE MEDICATIONS: 1. Ecotrin 81 mg daily. 2. Lipitor 40 mg daily. 3. Cozaar 100 mg daily. 4. Meclizine 25 mg every 8 hours. The patient is discharged home. Discharge followup with Dr. Tomas within 1 week. Patient is advised to stop amlodipine and Norvasc because of bradycardia. The patient has been extensively explained about the details of his medical condition, diagnosis, diagnostic test results at length and all questions concerned answered. Time spent in the discharge process 45 minutes. Dictated and electronically signed, not read. Krishna Tomas MD
== END 2017-10-19 14:20 | disposition home or self-care (01) ==
LOC: ED 04:24 → ERH 06:32 → 2RSO 10:07
PROVIDERS: ADMIT Internal Medicine; ATTEND Internal Medicine
DX: H81.10 Benign paroxysmal vertigo, unspecified ear (principal); R55 Syncope and collapse; I10 Essential (primary) hypertension; I65.23 Occlusion and stenosis of bilateral carotid arteries; I08.3 Combined rheumatic disorders of mitral, aortic and tricuspid valves; E78.00 Pure hypercholesterolemia, unspecified; E78.5 Hyperlipidemia, unspecified; I37.1 Nonrheumatic pulmonary valve insufficiency; D64.9 Anemia, unspecified; D72.820 Lymphocytosis (symptomatic); D70.9 Neutropenia, unspecified; R73.03 Prediabetes; R00.1 Bradycardia, unspecified; E66.9 Obesity, unspecified; Z68.27 Body mass index [BMI] 27.0-27.9, adult; Z87.891 Personal history of nicotine dependence; Z79.82 Long term (current) use of aspirin
CPT/HCPCS: 36415; 70450; 70544; 70553; 71045; 80053; 80061; 81003; 82248; 82550; 82607; 82746; 82948; 83036; 83615; 83735; 84100; 84439; 84443; 84484; 85025; 85027; 85610; 85651; 85730; 86140; 86592; 86618; 87389; 93005; 93306; 93880; 95812; 97161; 99285; A9579; G0378; G0480; G8978; G8979; J1650

== ENCOUNTER 2018-05-19 13:00 | Emergency (ER) | payer MEDICARE, MEDICAID ==
[2018-05-19 13:01] VITALS: BMI 29.0
[2018-05-19] MEDS ORDERED: Alum-Mag Hydrox-Simethicone Susp (30 mL) PO ONE (13:54)
--- NOTE | 2018-05-19 14:05 | ED PDOC ---
Arrival/HPI - General Chief Complaint: Abdominal Pain Time Seen by Provider: 05/19/18 13:47 Historian: Patient - History of Present Illness Narrative History of Present Illness (Text): 05/19/18 14:01 73 y/o m with pmh of hypertension presents with cc of right upper back pain x2 weeks. Patient reports that the right upper back pain radiates to his front anterior chest. Patient recalls taking advil but claims it provided no relief. Patient denies any fevers, chills, headache, dizziness, shortness of breath, dyspnea on exertion, cough, diaphoresis, abdominal pain, nausea, vomiting, diarrhea, neck pain, or any other complaint. Time/Duration: > week Symptom Onset: Sudden Symptom Course: Unchanged Activities at Onset: Light Context: Home Past Medical History - Provider Review Nursing Documentation Reviewed: Yes - Infectious Disease Hx of Infectious Diseases: None - Cardiac Hx Hypertension: Yes - Pulmonary Hx Respiratory Disorders: No - Neurological Hx Neurological Disorder: Yes Hx Dizziness: Yes (vertigo) - HEENT Hx HEENT Disorder: Yes (needs reading glasses doesn't use them) - Renal Hx Renal Disorder: No - Endocrine/Metabolic Hx Diabetes Mellitus Type 2: Yes - Hematological/Oncological Hx Blood Disorders: No - Integumentary Hx Dermatological Disorder: No - Musculoskeletal/Rheumatological Hx Falls: No - Gastrointestinal Hx Gastrointestinal Disorders: No - Genitourinary/Gynecological Hx Genitourinary Disorders: No - Psychiatric Hx Substance Use: No - Suicidal Assessment Feels Threatened In Home Enviroment: No Family/Social History - Physician Review Nursing Documentation Reviewed: Yes Family/Social History: Unknown Family HX Smoking Status: Former Smoker Hx Alcohol Use: No Hx Substance Use: No Hx Substance Use Treatment: No Allergies/Home Meds Allergies/Adverse Reactions: Allergies No Known Allergies Allergy (Verified 06/10/15 13:58) Home Medications: Home Meds Medication Instructions Recorded Confirmed Aspirin [Ecotrin] 1 tab PO DAILY 10/18/17 10/18/17 Losartan Potassium [Cozaar] 100 mg PO DAILY 10/18/17 10/18/17 Review of Systems - Physician Review All systems were reviewed & negative as marked: Yes - Review of Systems Constitutional: Normal Eyes: Normal ENT: Normal Respiratory: Normal Gastrointestinal: Normal Genitourinary Male: Normal Musculoskeletal: Back Pain (right upper) Skin: Normal Neurological: Normal Endocrine: Normal Hemo/Lymphatic: Normal Psychiatric: Normal Physical Exam Vital Signs Reviewed: Yes Appearance: Positive for: Well-Appearing, Non-Toxic, Comfortable Pain Distress: Mild Mental Status: Positive for: Alert and Oriented X 3 - Systems Exam Head: Present: Atraumatic, Normocephalic Pupils: Present: PERRL Extroacular Muscles: Present: EOMI Conjunctiva: Present: Normal Mouth: Present: Moist Mucous Membranes Neck: Present: Normal Range of Motion Respiratory/Chest: Present: Clear to Auscultation, Good Air Exchange. No: Respiratory Distress, Accessory Muscle Use Cardiovascular: Present: Regular Rate and Rhythm, Normal S1, S2. No: Murmurs Abdomen: No: Tenderness, Distention, Peritoneal Signs Back: Present: Normal Inspection Upper Extremity: Present: Normal Inspection. No: Cyanosis, Edema Lower Extremity: Present: Normal Inspection. No: Edema Neurological: Present: GCS=15, Speech Normal Skin: Present: Warm, Dry, Normal Color. No: Rashes Psychiatric: Present: Alert, Oriented x 3, Normal Insight, Normal Concentration Medical Decision Making ED Course and Treatment: 05/19/18 14:06 Impression: 73 y/o m with presents with cc of right upper back pain x2 weeks Differential Diagnosis included but are not limited to: --Pneumonia -- Muscular skeletal pain Plan: -- CXR -- Motrin -- Maalox Plus 30 ml -- Reassess and disposition Prior Visits: Notes and results from previous visits were reviewed. Progress Notes: - RAD Interpretation Narrative RAD Interpretations (Text): 05/19/18 13:52 Chest X-Ray -- No active disease Radiology Orders: 05/19/18 13:52 CHEST TWO VIEWS (PA/LAT) [RAD] Stat Anesthesia Technician: Radiologist - Medication Orders Current Medication Orders: Discontinued Medications Al Hydrox/Mg Hydrox/Simethicone (Maalox Plus 30 Ml) 30 ml PO ONCE ONE Stop: 05/19/18 13:55 Ibuprofen (Motrin Tab) 600 mg PO STAT STA Stop: 05/19/18 13:54 - Scribe Statement Waylon Noonan All medical record entries made by the Scribe were at my direction and personally dictated by me. I have reviewed the chart and agree that the record accurately reflects my personal performance of the history, physical exam, medical decision making, and the department course for this patient. I have also personally directed, reviewed, and agree with the discharge instructions and disposition. Disposition/Present on Arrival - Present on Arrival History of DVT/PE: No History of Uncontrolled Diabetes: No Urinary Catheter: No History of Decub. Ulcer: No History Surgical Site Infection Following: None - Disposition Diagnosis: Back pain, Pleuritic pain Disposition: HOME/ ROUTINE Patient Problems: Current Active Problems Problem Status Onset Back pain Acute Pleuritic pain Acute Condition: GOOD Discharge Instructions (ExitCare): Pleuritic Chest Pain, Upper Back Pain Prescriptions: Ibuprofen [Motrin] 600 mg PO Q6 #20 tab Referrals: [facility] at [facility] [place] [Outside] - Follow up with primary [facility] at [facility] [Outside] - Follow up with primary [facility] at [place] [Outside] - Follow up with primary Forms: [employer] (Estonian)
--- NOTE | 2018-05-19 14:30 | RAD ---
Date of service: 05/19/2018 HISTORY: chest pain COMPARISON: 10/18/2017 TECHNIQUE: Chest PA and lateral views FINDINGS: LUNGS: No active pulmonary disease. PLEURA: No significant pleural effusion identified. No pneumothorax apparent. CARDIOVASCULAR: No aortic atherosclerotic calcification present. Normal cardiac size. No pulmonary vascular congestion. OSSEOUS STRUCTURES: No significant abnormalities. VISUALIZED UPPER ABDOMEN: Normal. OTHER FINDINGS: None. IMPRESSION: No active disease.
[2018-05-19 14:51] VITALS: RESP 18; TEMP 98.2
[2018-05-19 15:39] VITALS: BP 129/66; PULSE 77; O2SAT 99
== END 2018-05-19 15:37 | disposition home or self-care (01) ==
LOC: ED 13:00
DX: M54.6 Pain in thoracic spine (principal); R07.81 Pleurodynia; I10 Essential (primary) hypertension; Z87.891 Personal history of nicotine dependence

== ENCOUNTER 2018-05-27 09:27 | Emergency (ER) | payer MEDICARE, MEDICAID ==
[2018-05-27 09:31] VITALS: BMI 29.0
[2018-05-27 09:39] VITALS: TEMP 97.9
[2018-05-27 10:15] LABS: EOS # 0.2 (0.0-0.7); EOS % 3.5 % (1.5-5.0); LYMPH # 1.2 (1.2-3.4); LYMPH % 25.4 % (22.0-35.0); MEAN CELL VOLUME 92.1 fl (80.0-105.0); MEAN CORPUSCULAR HEMOGLOBIN 31.1 pg (25.0-35.0); MEAN CORPUSCULAR HGB CONC 33.8 g/dl (31.0-37.0); MEAN PLATELET VOLUME 9.1 fl (7.0-11.0); MONO # 0.3 (0.1-0.6); MONO % 6.3 % (1.0-6.0); RBC 4.18 10^6/uL (3.5-6.1); RED CELL DISTRIBUTION WIDTH 12.7 % (11.5-14.5); WHITE BLOOD COUNT 4.9 10^3/uL (4.5-11.0)
[2018-05-27 10:19] LABS: ALB/GLOB RATIO 1.3 (1.1-1.8); ALBUMIN 3.9 g/dL (3.0-4.8); ALT/SGPT 30 U/L (7-56); AST/SGOT 30 U/L (17-59); BLOOD UREA NITROGEN 26 mg/dL (7-21); CALCIUM 9.3 mg/dL (8.4-10.5); GFR NON-AFRICAN AMERICAN 50; LIPASE 158 U/L (23-300)
[2018-05-27 10:30] LABS: TROPONIN I < 0.01 ng/mL
[2018-05-27 10:38] LABS: PH,URINE 5.5 (4.7-8.0); URINE BILIRUBIN NEGATIVE (NEGATIVE); URINE BLOOD NEGATIVE (NEGATIVE); URINE GLUCOSE (UA) NEGATIVE (NEGATIVE); URINE LEUKOCYTE ESTERASE NEGATIVE Leu/uL (NEGATIVE); URINE PROTEIN NEGATIVE mg/dL (<30 mg/dL); URINE UROBILINOGEN 0.2 E.U./dL (<1 E.U./dL)
--- NOTE | 2018-05-27 10:38 | ED PDOC ---
Arrival/HPI - General Chief Complaint: Back Pain Time Seen by Provider: 05/27/18 09:34 Historian: Patient - History of Present Illness Narrative History of Present Illness (Text): 05/27/18 10:35 73-year-old male presents today with a 6-week history of right-sided back pain/rib pain. Patient states that he slipped and fell about 2 months ago and has been having pain to the right side of the back that has been gradually worsening. Patient states pain is worse when he is lying in bed. Patient states the pain can be bad while sitting in the chair and worse with movement. Patient states occasionally he will have pain on deep inspiration. He denies abdominal pain. No nausea vomiting diarrhea or constipation. No chest pain or shortness of breath. No fevers or chills. Patient denies numbness weakness or tingling in the extremity. Patient states when he takes Motrin the pain goes away. Patient denies hitting his head. He denies headache. He denies neck pain he denies generalized weakness. no urinary symptoms. Pt states he took tylenol at home at 2am which resolved the pain. no other complaints. Past Medical History - Provider Review Nursing Documentation Reviewed: Yes - Travel History Have you recently traveled outside [place] w/in the past 3 mons?: No - Infectious Disease Hx of Infectious Diseases: None - Cardiac Hx Hypertension: Yes - Pulmonary Hx Respiratory Disorders: No - Neurological Hx Neurological Disorder: Yes Hx Dizziness: Yes (vertigo) - HEENT Hx HEENT Disorder: Yes (needs reading glasses doesn't use them) - Renal Hx Renal Disorder: No - Endocrine/Metabolic Hx Diabetes Mellitus Type 2: Yes - Hematological/Oncological Hx Blood Disorders: No - Integumentary Hx Dermatological Disorder: No - Musculoskeletal/Rheumatological Hx Falls: No - Gastrointestinal Hx Gastrointestinal Disorders: No - Genitourinary/Gynecological Hx Genitourinary Disorders: No - Psychiatric Hx Psychophysiologic Disorder: No Hx Depression: No Hx Emotional Abuse: No Hx Physical Abuse: No Hx Substance Use: No - Suicidal Assessment Feels Threatened In Home Enviroment: No Family/Social History - Physician Review Nursing Documentation Reviewed: Yes Family/Social History: Unknown Family HX Smoking Status: Former Smoker Hx Alcohol Use: No Hx Substance Use: No Hx Substance Use Treatment: No Allergies/Home Meds Allergies/Adverse Reactions: Allergies No Known Allergies Allergy (Verified 05/27/18 09:40) Home Medications: Home Meds Medication Instructions Recorded Confirmed Aspirin [Ecotrin] 1 tab PO DAILY 10/18/17 05/27/18 Losartan Potassium [Cozaar] 100 mg PO DAILY 10/18/17 05/27/18 Review of Systems - Review of Systems Constitutional: absent: Fatigue, Fevers Respiratory: absent: SOB, Cough Cardiovascular: absent: Chest Pain, Palpitations Gastrointestinal: absent: Abdominal Pain, Constipation, Diarrhea, Nausea, Vomiti ng Genitourinary Male: absent: Dysuria, Frequency, Hematuria, Urinary Output Changes Musculoskeletal: Arthralgias (right sided rib pain), Back Pain (right sided back/rib pain). absent: Neck Pain Skin: absent: Rash, Pruritis Neurological: absent: Headache, Dizziness Psychiatric: absent: Anxiety, Depression Physical Exam Vital Signs Reviewed: Yes Vital Signs Temp Pulse Resp BP Pulse Ox 05/27/18 09:35 97.9 F 72 18 135/74 100 Temperature: Afebrile Blood Pressure: Normal Pulse: Regular Respiratory Rate: Normal Appearance: Positive for: Well-Appearing, Non-Toxic, Comfortable Pain Distress: None Mental Status: Positive for: Alert and Oriented X 3 - Systems Exam Head: Present: Atraumatic Mouth: Present: Moist Mucous Membranes Neck: Present: Normal Range of Motion. No: MIDLINE TENDERNESS, Paraspinal Tenderness Respiratory/Chest: Present: Clear to Auscultation, Good Air Exchange, Tender to Palpation (+ minimal right sided lateral lower rib tenderness; no edema, no erythema; no step offs or crepitus. ). No: Respiratory Distress, Accessory Muscle Use, Wheezes, Decreased Breath Sounds, Retracting, Rhonchi, Tachypneic Cardiovascular: Present: Regular Rate and Rhythm, Normal S1, S2. No: Murmurs Abdomen: Present: Other (no ecchymosis). No: Tenderness, Distention, Rebound, Guarding Back: Present: Normal Inspection, Other (no ecchymosisi). No: CVA Tenderness, Midline Tenderness, Paraspinal Tenderness Upper Extremity: Present: Normal Inspection, Normal ROM Lower Extremity: Present: Normal ROM Neurological: Present: GCS=15, Speech Normal Skin: Present: Warm, Dry, Normal Color. No: Rashes Psychiatric: Present: Alert, Oriented x 3 Medical Decision Making ED Course and Treatment: 05/27/18 10:39 Patient is nontoxic well-appearing in no distress with stable vital signs complaining of right-sided rib pain times 6 weeks CBC within normal limits CMP within normal limits Lipase within normal limits Troponin within normal limits EKG shows normal sinus rhythm at 69 bpm normal axis no ST elevations QTC 415 right sided ribs/PA chest:FINDINGS: RIGHT RIBS: No fracture or focal lesion visualized. LUNGS: Clear. PLEURA: No pneumothorax or pleural fluid. CARDIOVASCULAR: Normal cardiac size. No pulmonary vascular congestion. Aortic calcification OTHER FINDINGS: None. IMPRESSION: Unremarkable radiographs of the chest and right ribs. No right rib fracture. 05/27/18 11:26 Patient is nontoxic well-appearing in no distress with stable vital signs. I discussed all results in depth with the patient and his daughter. Advised follow-up with Dr. Tomas within the next 2 days. Of advised taking Tylenol every 4-6 hours as needed for pain. Of advised not to exceed 3g in 1 day. I have advised immediate return if symptoms worsen persist or if new concerning symptoms develop Patient verbalizes understanding of discharge instructions and need for immediate followup. All aspects of this case were discussed the attending of record. Impression: Rib pain Tylenol every 4-6 hours as needed for pain. Do not exceed 3000 mg in ONE day Follow up with the primary care physician within the next 2 days Return immediately if symptoms worsen persist or if new concerning symptoms develop Reassessment Condition: Re-examined - Lab Interpretations Lab Results: Troponin I < 0.01 ng/mL 05/27/18 09:55 Total Bilirubin 0.5 mg/dL (0.2-1.3) 05/27/18 09:55 AST 30 U/L (17-59) 05/27/18 09:55 ALT 30 U/L (7-56) 05/27/18 09:55 Alkaline Phosphatase 66 U/L (38-126) 05/27/18 09:55 Total Protein 6.8 g/dL (5.8-8.3) 05/27/18 09:55 Albumin 3.9 g/dL (3.0-4.8) 05/27/18 09:55 Globulin 3.0 gm/dL 05/27/18 09:55 Albumin/Globulin Ratio 1.3 (1.1-1.8) 05/27/18 09:55 Lipase 158 U/L (23-300) 05/27/18 09:55 - RAD Interpretation Radiology Orders: 05/27/18 09:56 RIBS RIGHT & PA CHEST [RAD] Stat Disposition/Present on Arrival - Present on Arrival Any Indicators Present on Arrival: No History of DVT/PE: No History of Uncontrolled Diabetes: No Urinary Catheter: No History of Decub. Ulcer: No History Surgical Site Infection Following: None - Disposition Have Diagnosis and Disposition been Completed?: Yes Diagnosis: Rib pain Disposition: HOME/ ROUTINE Disposition Time: 10:40 Patient Plan: Discharge Condition: GOOD Discharge Instructions (ExitCare): Chest Pain (ED), Bruised Rib (DC) Additional Instructions: Tylenol every 4-6 hours as needed for pain. Do not exceed 3000 mg in ONE day Follow up with the primary care physician within the next 2 days Return immediately if symptoms worsen persist or if new concerning symptoms develop Referrals: Shanti Rodriguez [Primary Care Provider] - Follow up with primary Krishna Tomas MD [Staff Provider] - Follow up with primary Forms: [employer] (Bulgarian)
[2018-05-27 10:40] LABS: URINE APPEARANCE CLEAR (CLEAR); URINE COLOR YELLOW (YELLOW)
--- NOTE | 2018-05-27 11:20 | RAD ---
Date of service: 05/27/2018 PROCEDURE: Radiographs of the Chest and Right Ribs. HISTORY: rib pain/right sided chest/back pain COMPARISON: None available. TECHNIQUE: Frontal radiograph of the chest and multiple oblique radiographs of the right ribs were obtained. 4 views obtained. FINDINGS: RIGHT RIBS: No fracture or focal lesion visualized. LUNGS: Clear. PLEURA: No pneumothorax or pleural fluid. CARDIOVASCULAR: Normal cardiac size. No pulmonary vascular congestion. Aortic calcification OTHER FINDINGS: None. IMPRESSION: Unremarkable radiographs of the chest and right ribs. No right rib fracture.
[2018-05-27 11:52] VITALS: BP 132/78; PULSE 75; RESP 16; O2SAT 99
--- NOTE | 2018-05-27 22:39 | CARD ---
APPROVED REPORT Date of service: 05/27/2018 EKG Measurement Heart [id number] <Conclusion> Normal sinus rhythm Normal ECG
== END 2018-05-27 11:51 | disposition home or self-care (01) ==
LOC: ED 09:27
DX: R07.81 Pleurodynia (principal); E11.9 Type 2 diabetes mellitus without complications; I10 Essential (primary) hypertension; Z87.891 Personal history of nicotine dependence

== ENCOUNTER 2018-07-06 12:40 | Outpatient (CLI) | payer MEDICARE, MEDICAID | END 2018-07-06 12:41 | disposition home or self-care (01) | LOC: RAD 12:40 | DX: N50.0 Atrophy of testis (principal) ==